=== PATIENT | male | born 1995 | race Caucasian/White ===

== ENCOUNTER 2019-10-19 03:41 | Observation (INO) | payer SELFPAY ==
[2019-10-19 04:59] LABS: ABSOLUTE BASOPHILS # (AUTO) 0.1 10^3/uL (0.0-0.2); ABSOLUTE EOSINOPHILS # (AUTO) 0.2 10^3/uL (0.0-0.6); ABSOLUTE LYMPHOCYTES (AUTO) 2.2 10^3/uL (0.5-4.7); ABSOLUTE MONOCYTES (AUTO) 0.9 10^3/uL (0.1-1.4); ABSOLUTE NEUT (AUTO) 10.7 10^3/uL (1.7-8.2); BASOPHILS % (AUTO) 0.5 % (0-2); EOSINOPHILS % (AUTO) 1.2 % (0-6); HEMATOCRIT 45.3 % (37.9-51.0); HEMOGLOBIN 15.5 g/dL (13.5-17.0); LYMPHOCYTES % (AUTO) 15.6 % (13-45); MEAN CORPUSCULAR HEMOGLOBIN 27.9 pg (27.0-33.4); MEAN CORPUSCULAR HGB CONC 34.3 g/dL (32.0-36.0); MEAN CORPUSCULAR VOLUME 81 fl (80-97); MONOCYTES % (AUTO) 6.8 % (3-13); PLATELET COUNT 253 10^3/uL (150-450); RED BLOOD COUNT 5.57 10^6/uL (4.35-5.55); RED CELL DISTRIBUTION WIDTH 13.2 % (11.5-14.0); SEGMENTED NEUTROPHILS % (AUTO) 75.9 % (42-78); TOTAL CELLS COUNTED % (AUTO) 100 %
[2019-10-19 05:02] LABS: APPEARANCE,URINE CLEAR; BILIRUBIN,URINE NEGATIVE (NEGATIVE); COLOR,URINE STRAW; GLUCOSE, URINE NEGATIVE (NEGATIVE); KETONES,URINE NEGATIVE (NEGATIVE); LEUKOCYTE ESTERASE,URINE NEGATIVE (NEGATIVE); NITRITE,URINE NEGATIVE (NEGATIVE); PROTEIN,URINE NEGATIVE (NEGATIVE); URINE SPECIFIC GRAVITY 1.008; UROBILINOGEN,URINE NEGATIVE mg/dL (<2.0)
[2019-10-19 05:05] LABS: ALBUMIN 4.8 g/dL (3.5-5.0); ALKALINE PHOSPHATASE 79 U/L (38-126); ANION GAP 12 (5-19); ASPARTATE AMINO TRANSFERASE 148 U/L (17-59); BILIRUBIN,DIRECT 0.5 mg/dL (0.0-0.4); BILIRUBIN,TOTAL 1.1 mg/dL (0.2-1.3); BLOOD UREA NITROGEN 15 mg/dL (7-20); CALCIUM 10.1 mg/dL (8.4-10.2); CARBON DIOXIDE 29 mmol/L (22-30); CHLORIDE 101 mmol/L (98-107); GLUCOSE 128 mg/dL (75-110); TOTAL PROTEIN 8.2 g/dL (6.3-8.2)
[2019-10-19] MEDS ORDERED: SUCCINYLCHOLINE CHLORIDE INJ 200 MG/10 ML VIAL ONE (08:43)
[2019-10-19] MEDS ORDERED: ONDANSETRON HCL INJ/PF 4 MG/2 ML SDV ONE (08:43)
[2019-10-19] MEDS ORDERED: DEXAMETHASONE SOD PHOSPHATE INJ 4 MG/1 ML VIAL ONE (08:43)
[2019-10-19] MEDS ORDERED: ROCURONIUM BROMIDE INJ 50 MG/5 ML VIAL IV ONE (08:43)
[2019-10-19] MEDS ORDERED: KETOROLAC TROMETHAMINE 60 MG/2 ML SDV ONE (08:43)
--- NOTE | 2019-10-19 10:01 | RADIOLOGY REPORT (SQ) ---
EXAM DESCRIPTION: U/S ABDOMEN LIMITED W/O DOP COMPLETED DATE/TIME: 10/19/2019 9:37 am REASON FOR STUDY: ruq abd pain COMPARISON: None. TECHNIQUE: Dynamic and static grayscale images acquired of the abdomen and recorded on PACS. Additio nal selected color Doppler and spectral images recorded. Note: Exam does not meet criteria for a complete doppler/duplex scan LIMITATIONS: Study limited due to acoustical interference from fat or from air in the bowel. FINDINGS: PANCREAS: Obscured. LIVER: Echotexture is coarse with increased echogenicity consistent with fatty infiltration. LIVER VASCULATURE: Normal directional flow of the main portal vein and hepatic veins. GALLBLADDER: Large 5 cm shadowing gallstone in the gallbladder neck. No pericholecystic fluid. No wa ll thickening. ULTRASOUND-DETECTED CARDOSO'S SIGN: Negative. INTRAHEPATIC DUCTS AND COMMON DUCT: CBD and intrahepatic ducts normal caliber. No filling defects. INFERIOR VENA CAVA: Normal flow. AORTA: No aneurysm. RIGHT KIDNEY: Normal size. Normal echogenicity. No solid or suspicious masses. No hydronephrosis. No calcifications. PERITONEAL AND PLEURAL SPACES: No ascites or effusions. OTHER: No other significant finding. IMPRESSION: 1. LARGE GALLSTONE. 2. FATTY INFILTRATION OF THE LIVER. NO OTHER SIGNIFICANT FINDING IN THE VISUALIZED ABDOMEN. TECHNICAL DOCUMENTATION: JOB ID: [id number] [employer]- All Rights Reserved Reading location - IP/workstation name: [email or web address]
[2019-10-19] MEDS ORDERED: ONDANSETRON HCL INJ/PF 4 MG/2 ML SDV IV PRN ×2 (10:36→16:55)
[2019-10-19] MEDS ORDERED: MORPHINE SULFATE 10 MG/ML INJ IV PRN ×2 (10:36→16:55)
--- NOTE | 2019-10-19 10:36 | PDOC H&P ---
History of Present Illness Patient complains of: Nausea, vomiting, right upper quadrant pain. History of Present Illness: DIAN MUHAMMAD is a 24 year old male with a 10-hour history of sharp, stabbing, unrelenting right upper quadrant pain. He reports last night at approximately 10 PM he ate mozzarella sticks. He woke up at approximately 1 AM with sharp, stabbing, unrelenting right upper quadrant pain. He has experienced nausea and vomiting. His pain is worsening. Nothing makes it better or worse. The patient denies chest pain, shortness of breath, fevers, chills, orthostasis, dizziness, headache, fatigue, melena, hematochezia, hematemesis. He does report malaise. Past Medical History Medical History: None Past Surgical History Past Surgical History: Reports: None Social History Smoking Status: Never Smoker Electronic Cigarette use?: No Hx Recreational Drug Use: No Hx Prescription Drug Abuse: No Family History Family History: Reviewed & Not Pertinent Parental Family History Reviewed: Yes Children Family History Reviewed: Yes Sibling(s) Family History Reviewed.: Yes Medication/Allergy Home Medications: Penicillin V Potassium [Penicillin Vk 250 mg Tablet] 250 mg PO Q6 #40 tablet 05/24/16 Tramadol HCl 50 mg PO ASDIR PRN #20 tablet 05/24/16 Allergies/Adverse Reactions: No Known Allergies Allergy (Verified 10/19/19 04:01) Review of Systems Constitutional: ABSENT: anorexia, chills, fatigue, fever(s), headache(s) Eyes: ABSENT: visual disturbances Ears: ABSENT: hearing changes Nose, Mouth, and Throat: ABSENT: mouth pain Breasts: ABSENT: other Cardiovascular: ABSENT: chest pain Respiratory: ABSENT: cough, dyspnea Gastrointestinal: PRESENT: abdominal pain, nausea, vomiting. ABSENT: bloating, constipation, diarrhea, dysphagia, heartburn, hematemesis, melena Genitourinary: ABSENT: dysuria Musculoskeletal: ABSENT: back pain Integumentary: ABSENT: pruritus, rash Neurological: ABSENT: confusion, convulsions, dizziness Psychiatric: ABSENT: anxiety, depression Endocrine: ABSENT: cold intolerance, heat intolerance Hematologic/Lymphatic: ABSENT: easy bleeding, easy bruising Physical Exam Vital Signs: Temp Pulse Resp BP Pulse Ox 98.7 F 86 19 138/83 H 96 10/19/19 04:02 10/19/19 04:02 10/19/19 04:02 10/19/19 04:02 10/19/19 04:02 Intake & Output 10/18/19 10/19/19 10/20/19 06:59 06:59 06:59 Weight 107.9 kg General appearance: PRESENT: no acute distress, cooperative, obese Head exam: PRESENT: atraumatic, normocephalic Eye exam: PRESENT: EOMI, PERRLA. ABSENT: scleral icterus Mouth exam: PRESENT: moist, neck supple Neck exam: ABSENT: meningismus, tenderness, thyromegaly, tracheal deviation Respiratory exam: PRESENT: clear to auscultation karen, unlabored. ABSENT: chest wall tenderness, tachypnea, wheezes Cardiovascular exam: ABSENT: tachycardia Pulses: PRESENT: normal radial pulses Vascular exam: ABSENT: pallor GI/Abdominal exam: PRESENT: guarding - RUQ, Hollins's sign, soft, tenderness - RUQ. ABSENT: distended, firm Rectal exam: PRESENT: deferred Extremities exam: ABSENT: clubbing Neurological exam: PRESENT: alert, awake, oriented to person, oriented to place, oriented to time, oriented to situation, CN II-XII grossly intact. ABSENT: motor sensory deficit Psychiatric exam: ABSENT: agitated, anxious, depressed Focused psych exam: ABSENT: delusional Skin exam: ABSENT: cyanosis, erythema, jaundice Results Laboratory Results: 10/19/19 04:43 10/19/19 04:43 10/19/19 10/19/19 10/19/19 04:43 04:43 04:43 WBC 14.0 H RBC 5.57 H Hgb 15.5 Hct 45.3 MCV 81 MCH 27.9 MCHC 34.3 RDW 13.2 Plt Count 253 Seg Neutrophils % 75.9 Sodium 142.4 Potassium 4.0 Chloride 101 Carbon Dioxide 29 Anion Gap 12 BUN 15 Creatinine 0.84 Est GFR ( Amer) > 60 Glucose 128 H Calcium 10.1 Total Bilirubin 1.1 AST 148 H Alkaline Phosphatase 79 Total Protein 8.2 Albumin 4.8 Lipase 152.9 Urine Color STRAW Urine Appearance CLEAR Urine pH 6.0 Ur Specific [place] 1.008 Urine Protein NEGATIVE Urine Glucose (UA) NEGATIVE Urine Ketones NEGATIVE Urine Blood NEGATIVE Urine Nitrite NEGATIVE Ur Leukocyte Esterase NEGATIVE Urine WBC (Auto) 0 Urine RBC (Auto) 0 Impressions: Abdomen Ultrasound 10/19/19 07:53 IMPRESSION: 1. LARGE GALLSTONE. 2. FATTY INFILTRATION OF THE LIVER. NO OTHER SIGNIFICANT FINDING IN THE VISUALIZED ABDOMEN. Assessment & Plan - Diagnosis (1) Acute cholecystitis Is this a current diagnosis for this admission?: Yes - Plan Summary Plan Summary: This is a 24-year-old male with right upper quadrant pain, gallstones, leukocytosis, consistent with acute cholecystitis. I have admitted the patient in the hospital, started intravenous antibiotics, and plan for surgical intervention today (laparoscopic versus open cholecystectomy). Continue n.p.o. status. Surgical intervention has been discussed with the patient and his family at length. Risks/benefits were discussed, informed consent was obtained, and all questions answered.
--- NOTE | 2019-10-19 10:43 | ER Document Report ---
ED General - General Chief Complaint: Abdominal Pain Stated Complaint: RIGHT UPPER ABDOMINAL PAIN Time Seen by Provider: 10/19/19 07:47 Mode of Arrival: Ambulatory Information source: Patient TRAVEL OUTSIDE OF THE [place] IN LAST 30 DAYS: No - HPI Notes: Patient presents with approximately 1 week worth of right upper quadrant pain. It is worse after eating fatty foods better when he does not. It does radiate across the upper part of the abdomen. It is severe and sharp. He is also had some nausea with one episode of vomiting this week. No problems with stools or urine. No fevers. This pain has been intermittent and moderate in intensity. - Related Data Allergies/Adverse Reactions: No Known Allergies Allergy (Verified 10/19/19 04:01) Home Medications: multivitamins. Ibuprofen Past Medical History - General Information source: Patient - Social History Smoking Status: Never Smoker Chew tobacco use (# tins/day): No Frequency of alcohol use: Rare Drug Abuse: None Family History: Reviewed & Not Pertinent Patient has suicidal ideation: No Patient has homicidal ideation: No Past Surgical History: Reports: None - Immunizations Immunizations up to date: Yes Hx Diphtheria, Pertussis, Tetanus Vaccination: Yes Review of Systems - Review of Systems Constitutional: denies: Chills, Fever Cardiovascular: denies: Chest pain, Palpitations Respiratory: denies: Cough, Short of breath -: Yes All other systems reviewed and negative Physical Exam - Vital signs Vitals: Temp Pulse Resp BP Pulse Ox 98.7 F 86 19 138/83 H 96 10/19/19 04:02 10/19/19 04:02 10/19/19 04:02 10/19/19 04:02 10/19/19 04:02 Interpretation: Normal - General General appearance: Appears well, Alert - HEENT Head: Normocephalic, Atraumatic Eyes: Normal Pupils: PERRL - Respiratory Respiratory status: No respiratory distress Chest status: Nontender Breath sounds: Normal Chest palpation: Normal - Cardiovascular Rhythm: Regular Heart sounds: Normal auscultation Murmur: No - Abdominal Inspection: Normal Distension: No distension Bowel sounds: Normal Tenderness: Tender, Hollins's sign, Guarding Organomegaly: No organomegaly - Back Back: Normal, Nontender - Extremities General upper extremity: Normal inspection, Nontender, Normal color, Normal ROM, Normal temperature General lower extremity: Normal inspection, Nontender, Normal color, Normal ROM, Normal temperature, Normal weight bearing. No: Jesse's sign - Neurological Neuro grossly intact: Yes Cognition: Normal Orientation: AAOx4 [place] Coma Scale Eye Opening: Spontaneous [place] Coma Scale Verbal: Oriented [place] Coma Scale Motor: Obeys Commands Ramon Coma Scale Total: 15 Speech: Normal Motor strength normal: LUE, RUE, LLE, RLE Sensory: Normal - Psychological Associated symptoms: Normal affect, Normal mood - Skin Skin Temperature: Warm Skin Moisture: Dry Skin Color: Normal Course - Re-evaluation Re-evalutation: 10/19/19 10:42 Patient presents with right upper quadrant pain this worse with fatty foods. He does have a gallstone stuck in the gallbladder neck. He does have an elevated WBC count. Dr. Trejo is seen the patient and will admit the patient for possible cholecystectomy. - Vital Signs Vital signs: Temp Pulse Resp BP Pulse Ox 98.7 F 86 19 138/83 H 96 10/19/19 04:02 10/19/19 04:02 10/19/19 04:02 10/19/19 04:02 10/19/19 04:02 - Laboratory Result Diagrams: 10/19/19 04:43 10/19/19 04:43 Laboratory results interpreted by me: 10/19/19 10/19/19 04:43 04:43 WBC 14.0 H RBC 5.57 H Absolute Neuts (auto) 10.7 H Glucose 128 H Direct Bilirubin 0.5 H AST 148 H ALT 95 H - Diagnostic Test Radiology reviewed: Image reviewed, Reports reviewed Discharge - Discharge Clinical Impression: Cholecystitis Condition: Stable Disposition: ADMITTED INPATIENT Admitting Provider: Rebecca trejo Unit Admitted: Surgical Floor
[2019-10-19] MEDS ORDERED: ONDANSETRON HCL INJ/PF 4 MG/2 ML SDV IV ONE (10:44)
[2019-10-19] MEDS ORDERED: MORPHINE SULFATE 10 MG/ML INJ IV ONE (10:44)
[2019-10-19] MEDS: FAMOTIDINE INJ/PF 20 MG/2 ML SDV IV SCH ×2 (11:01→21:14)
[2019-10-19] MEDS: NORMAL SALINE 1000 ML 1,000 ML IV PRN ×2 (11:06→20:13)
[2019-10-19] MEDS: PIPERACILLIN SODIUM/TAZOBACTAM 3.375 GM in NORMAL SALINE 100 ML IV SCH ×2 (11:40→21:15)
[2019-10-19] MEDS ORDERED: INFLUENZA QUAD (6MOS+) 2019-20 VAC 0.5 ML SYR IM ONE (14:51)
[2019-10-19] MEDS ORDERED: BUPIVACAINE HCL 0.5 % INJ/PF 30 ML SDV ONE (16:05)
[2019-10-19] MEDS ORDERED: GLUCAGON,HUMAN RECOMB 1 MG INJ ONE (16:06)
[2019-10-19] MEDS ORDERED: MIDAZOLAM 2 MG/2 ML INJ ONE (16:08)
[2019-10-19] MEDS ORDERED: FENTANYL CITRATE INJ/PF 100 MCG/2 ML AMPUL ONE ×2 (16:08→19:10)
[2019-10-19] MEDS ORDERED: PROPOFOL INJ 200 MG/20 ML VIAL IV ONE (16:09)
[2019-10-19] MEDS ORDERED: DIPHENHYDRAMINE HCL 50 MG/ML VIAL IV PRN (16:55)
[2019-10-19] MEDS ORDERED: PROMETHAZINE HCL INJ 25 MG/1 ML VIAL IV PRN (16:55)
[2019-10-19] MEDS ORDERED: FENTANYL CITRATE INJ/PF 100 MCG/2 ML AMPUL IV PRN ×3 (16:55)
[2019-10-19] MEDS ORDERED: MEPERIDINE HCL/PF INJ 25 MG/1 ML DISP.SYRIN IV PRN (16:55)
[2019-10-19] MEDS: HYDROCODONE/ACETAMINOPHEN 10-325 MG TABLET PO PRN (20:13)
[2019-10-20] MEDS: HYDROCODONE/ACETAMINOPHEN 10-325 MG TABLET PO PRN ×3 (00:31→09:41)
[2019-10-20] MEDS: NORMAL SALINE 1000 ML 1,000 ML IV PRN (02:32)
[2019-10-20] MEDS: PIPERACILLIN SODIUM/TAZOBACTAM 3.375 GM in NORMAL SALINE 100 ML IV SCH ×2 (02:32→09:18)
--- NOTE | 2019-10-20 06:37 | Operative Report ---
Nonrecallable Operative Report DATE OF SURGERY: 10/19/19 PREOPERATIVE DIAGNOSIS: Acute cholecystitis POSTOPERATIVE DIAGNOSIS: 1. Same as above. 2. Gallbladder hydrops OPERATION: Laparoscopic cholecystectomy SURGEON: MOLLY ZIMMERMAN ANESTHESIA: GA TISSUE REMOVED OR ALTERED: Gallbladder COMPLICATIONS: None apparent ESTIMATED BLOOD LOSS: 50 cc PROCEDURE: Drains/implants: 15 Urdu round [place] drain in the gallbladder fossa. Procedure in detail: After informed consent was obtained, the patient was brought into the operating room and laid in the supine position. The area of the abdomen was prepped and draped in a normal sterile fashion. An incision was created in the supraumbilical position. Dissection was carried through the subcutaneous tissues using sharp and blunt dissection. The cicatrix was identified, grasped with a Magdiel clamp, and retracted upwards. The linea alba fascia was incised sharply, the abdomen was entered sharply. The balloon trocar was inserted, pneumoperitoneum was achieved. A subxiphoid 5 mm port was then placed under direct laparoscopic visualization. 2 more 5 mm ports were placed in the right upper quadrant in similar fashion. Atraumatic graspers were placed through the 5 mm ports. The gallbladder was retracted cephalad and laterally. The gallbladder was very tense and distended. It was very difficult to manipulate. Secondary to this, a cyst aspiration needle was used to aspirate approximately 100 cc of hydropic bile from the gallbladder. The gallbladder then became much easier to manipulate. Dissection was begun in the triangle of [place]. There was acute cholecystitis present, and dissection was somewhat difficult. With great care the dissection proceeded. Eventually, the cystic duct and cystic artery were fully visualized and skeletonized, seeing the liver through the triangle. Once the critical view of safety was obtained the cystic duct and cystic artery were clipped and cut with laparoscopic instruments. The gallbladder was then removed from the liver using Bovie electrocautery. The gallbladder was placed into an Endo Catch bag, and pulled out through the umbilicus. The camera was reinserted. The hilum was then inspected. It was found to be free of any leakage of blood or bile. The abdomen was then copiously irrigated and suctioned until the effluent was clear. Once this was completed, the 5 mm trochars were removed under direct laparoscopic visualization. The supraumbilical trocar was then removed, and pneumoperitoneum was relieved. The supraumbilical fascia was closed using 0 Vicryl suture in [id number] fashion. The overlying skin was closed using 4-0 Vicryl Rapide suture in subcuticular fashion. All sponge, instrument, and needle counts were correct x2. Condition: Stable.
[2019-10-20 07:09] LABS: ABSOLUTE MONOCYTES (AUTO) 0.7 10^3/uL (0.1-1.4); ABSOLUTE NEUT (AUTO) 12.5 10^3/uL (1.7-8.2); BASOPHILS % (AUTO) 0.1 % (0-2); HEMATOCRIT 43.2 % (37.9-51.0); HEMOGLOBIN 14.6 g/dL (13.5-17.0); MEAN CORPUSCULAR HGB CONC 33.6 g/dL (32.0-36.0); MEAN CORPUSCULAR VOLUME 83 fl (80-97); MONOCYTES % (AUTO) 4.9 % (3-13); PLATELET COUNT 223 10^3/uL (150-450); RED BLOOD COUNT 5.21 10^6/uL (4.35-5.55); RED CELL DISTRIBUTION WIDTH 13.4 % (11.5-14.0); TOTAL CELLS COUNTED % (AUTO) 100 %; WHITE BLOOD COUNT 14.2 10^3/uL (4.0-10.5)
[2019-10-20 07:27] LABS: ALBUMIN 4.1 g/dL (3.5-5.0); ALKALINE PHOSPHATASE 108 U/L (38-126); ANION GAP 14 (5-19); ASPARTATE AMINO TRANSFERASE 285 U/L (17-59); BILIRUBIN,TOTAL 1.9 mg/dL (0.2-1.3); BLOOD UREA NITROGEN 12 mg/dL (7-20); CALCIUM 9.3 mg/dL (8.4-10.2); CARBON DIOXIDE 24 mmol/L (22-30); CHLORIDE 102 mmol/L (98-107); GLUCOSE 165 mg/dL (75-110); POTASSIUM 4.1 mmol/L (3.6-5.0); TOTAL PROTEIN 7.2 g/dL (6.3-8.2)
[2019-10-20] MEDS: FAMOTIDINE INJ/PF 20 MG/2 ML SDV IV SCH (09:18)
[2019-10-20 11:11] VITALS: BP 127/73
--- NOTE | 2019-10-20 15:23 | PDOC DISCHARGE SUMMARY ---
General - Admit/Disc Date/PCP Admission Date/Primary Care Provider: 10/19/19 10:52 Discharge Date: 10/20/19 - Discharge Diagnosis Final Diagnosis: Acute cholecystitis - Assessment Summary: Admitted for acute cholecystitis and underwent laparoscopic cholecystectomy on 10/19/2019. Postoperatively patient did very well. However the SARA drain 125 cc and therefore patient patient will be discharged with the drain which will be removed in the office by Dr. Amaya in about a week. His liver enzymes slightly elevated but the alkaline [place] remain normal postoperatively. He remained afebrile the white count is slightly elevated but this is decreased from preop. - Additional Information Resuscitation Status: Full Code Discharge Diet: Regular Discharge Activity: Activity As Tolerated Referrals: [facility] [Provider Group] - 11/01/19 10:45 am Home Medications: Ibuprofen 200 mg PO DAILYP PRN 10/19/19 Multivitamin [Tab-A-Serg (Multiple Vitamin) Tablet] 1 tab PO DAILY 10/19/19 History of Present Illiness History of Present Illness: DIAN MUHAMMAD is a 24 year old male in of right upper quadrant pains. Ultrasound showed gallstones with acute cholecystitis. Physical Exam Vital Signs: Temp Pulse Resp BP Pulse Ox 97.6 F 85 16 127/73 H 100 10/20/19 11:10 10/20/19 11:10 10/20/19 11:10 10/20/19 11:10 10/20/19 11:10 Intake & Output 10/19/19 10/20/19 10/21/19 06:59 06:59 06:59 Intake Total 4473 Output Total 136 Balance 4337 Weight 107.9 kg 74.9 kg Results Laboratory Results: WBC 14.2 10^3/uL (4.0-10.5) H 10/20/19 06:04 RBC 5.21 10^6/uL (4.35-5.55) 10/20/19 06:04 Hgb 14.6 g/dL (13.5-17.0) 10/20/19 06:04 Hct 43.2 % (37.9-51.0) 10/20/19 06:04 MCV 83 fl (80-97) 10/20/19 06:04 MCH 28.0 pg (27.0-33.4) 10/20/19 06:04 MCHC 33.6 g/dL (32.0-36.0) 10/20/19 06:04 RDW 13.4 % (11.5-14.0) 10/20/19 06:04 Plt Count 223 10^3/uL (150-450) 10/20/19 06:04 Lymph % (Auto) 7.0 % (13-45) L 10/20/19 06:04 [place] % (Auto) 4.9 % (3-13) 10/20/19 06:04 Eos % (Auto) 0.0 % (0-6) 10/20/19 06:04 Baso % (Auto) 0.1 % (0-2) 10/20/19 06:04 Absolute Neuts (auto) 12.5 10^3/uL (1.7-8.2) H 10/20/19 06:04 Absolute Lymphs (auto) 1.0 10^3/uL (0.5-4.7) 10/20/19 06:04 Absolute Monos (auto) 0.7 10^3/uL (0.1-1.4) 10/20/19 06:04 Absolute Eos (auto) 0.0 10^3/uL (0.0-0.6) 10/20/19 06:04 Absolute Basos (auto) 0.0 10^3/uL (0.0-0.2) 10/20/19 06:04 Seg Neutrophils % 88.0 % (42-78) H 10/20/19 06:04 Sodium 139.9 mmol/L (137-145) 10/20/19 06:04 Potassium 4.1 mmol/L (3.6-5.0) 10/20/19 06:04 Chloride 102 mmol/L (98-107) 10/20/19 06:04 Carbon Dioxide 24 mmol/L (22-30) 10/20/19 06:04 Anion Gap 14 (5-19) 10/20/19 06:04 BUN 12 mg/dL (7-20) 10/20/19 06:04 Creatinine 0.83 mg/dL (0.52-1.25) 10/20/19 06:04 Est GFR ( Amer) > 60 (>60) 10/20/19 06:04 Est GFR (MDRD) Non-Af > 60 (>60) 10/20/19 06:04 Glucose 165 mg/dL (75-110) H 10/20/19 06:04 Calcium 9.3 mg/dL (8.4-10.2) 10/20/19 06:04 Total Bilirubin 1.9 mg/dL (0.2-1.3) H 10/20/19 06:04 Direct Bilirubin 1.0 mg/dL (0.0-0.4) H 10/20/19 06:04 Neonat Total Bilirubin Not Reportable 10/20/19 06:04 Neonat Direct Bilirubin Not Reportable 10/20/19 06:04 Neonat Indirect Bili Not Reportable 10/20/19 06:04 AST 285 U/L (17-59) H 10/20/19 06:04 ALT 462 U/L (<50) H 10/20/19 06:04 Alkaline Phosphatase 108 U/L (38-126) 10/20/19 06:04 Total Protein 7.2 g/dL (6.3-8.2) 10/20/19 06:04 Albumin 4.1 g/dL (3.5-5.0) 10/20/19 06:04 Lipase 152.9 U/L (23-300) 10/19/19 04:43 Urine Color STRAW 10/19/19 04:43 Urine Appearance CLEAR 10/19/19 04:43 Urine pH 6.0 (5.0-9.0) 10/19/19 04:43 Ur Specific [place] 1.008 10/19/19 04:43 Urine Protein NEGATIVE mg/dL (NEGATIVE) 10/19/19 04:43 Urine Glucose (UA) NEGATIVE mg/dL (NEGATIVE) 10/19/19 04:43 Urine Ketones NEGATIVE mg/dL (NEGATIVE) 10/19/19 04:43 Urine Blood NEGATIVE (NEGATIVE) 10/19/19 04:43 Urine Nitrite NEGATIVE (NEGATIVE) 10/19/19 04:43 Urine Bilirubin NEGATIVE (NEGATIVE) 10/19/19 04:43 Urine Urobilinogen NEGATIVE mg/dL (<2.0) 10/19/19 04:43 Ur Leukocyte Esterase NEGATIVE (NEGATIVE) 10/19/19 04:43 Urine WBC (Auto) 0 /HPF 10/19/19 04:43 Urine RBC (Auto) 0 /HPF 10/19/19 04:43 Urine Mucus (Auto) RARE /LPF 10/19/19 04:43 Urine Ascorbic Acid NEGATIVE (NEGATIVE) 10/19/19 04:43 Impressions: Abdomen Ultrasound 10/19/19 07:53 IMPRESSION: 1. LARGE GALLSTONE. 2. FATTY INFILTRATION OF THE LIVER. NO OTHER SIGNIFICANT FINDING IN THE VISUALIZED ABDOMEN.
== END 2019-10-20 11:40 | disposition home or self-care (01) ==
LOC: ER 03:41 → INTOOBSV 10:52 → EH 10:52 → 4S 12:18
PROVIDERS: ATTEND Surgery
DX: K80.12 Calculus of gallbladder with acute and chronic cholecystitis without obstruction (principal); E66.9 Obesity, unspecified; Z23 Encounter for immunization
CPT/HCPCS: 99285; 36415 ×2; 83690; 85025 ×2; 80053 ×2; 81001; 88304 ×2; 76705; 90686; 00790; 47562; G0378 ×3; J2250; J3490 ×2; J1100; J1885; J3010; J2270 ×2; J0330; J2405; J7050 ×2; J7030 ×2; J2704; S0028; J2543 ×2; 790; J1610

== ENCOUNTER 2019-10-27 17:51 | Observation (INO) | payer SELFPAY ==
[2019-10-27] MEDS: RINGERS SOLUTION,LACTATED 1,000 ML IV PRN (19:00)
[2019-10-27] MEDS: PIPERACILLIN SODIUM/TAZOBACTAM 3.375 GM in NORMAL SALINE 100 ML IV SCH (21:06)
--- NOTE | 2019-10-27 21:26 | PDOC H&P ---
History of Present Illness Admission Date/PCP: 10/27/19 17:51 Patient complains of: Jaundice History of Present Illness: DIAN MUHAMMAD is a 24 year old male The patient is admitted directly to the hospital after being seen at [facility] earlier today by Dr. Isabella Conn 1 week after undergoing laparoscopic cholecystectomy with drain placement by Dr. Andrei Amaya at [facility] on October 19. Patient at that time was found to have acute cholecystitis, hemorrhagic component, with biliary hydrops, and cholelithiasis. Discharged home the following day, total bilirubin 1.9. Since discharge the patient has had some incisional pain and drain site pain but no abdominal pain. His urine is been dark, and occasionally has had ervin colored stools. His diet is been depressed but not significantly. He denies fever. When seen today in the office he was felt to be jaundiced and had blood work done which revealed a total bilirubin of 2.4, and an elevated alkaline phosphatase. He was brought back to the hospital for further evaluation. Past Medical History Past Medical History: As per HPI Past Surgical History Past Surgical History: Reports: Cholecystectomy Social History Information Source: Patient Smoking Status: Never Smoker Electronic Cigarette use?: No Frequency of Alcohol Use: None Hx Recreational Drug Use: No Drugs: None Hx Prescription Drug Abuse: No Family History Family History: None, Reviewed & Not Pertinent Parental Family History Reviewed: No Children Family History Reviewed: No Sibling(s) Family History Reviewed.: No Medication/Allergy Home Medications: Multivitamin [Tab-A-Serg (Multiple Vitamin) Tablet] 1 tab PO DAILY 10/19/19 Allergies/Adverse Reactions: No Known Allergies Allergy (Verified 10/19/19 04:01) Review of Systems Constitutional: PRESENT: as per HPI Eyes: PRESENT: as per HPI. ABSENT: visual disturbances Ears: ABSENT: hearing changes Cardiovascular: ABSENT: chest pain, dyspnea on exertion, edema, orthropnea, palpitations Gastrointestinal: PRESENT: other - As per HPI; patient denies constipation. Genitourinary: ABSENT: dysuria, hematuria Musculoskeletal: ABSENT: joint swelling Integumentary: ABSENT: rash, wounds Neurological: ABSENT: abnormal gait, abnormal speech, confusion, dizziness, focal weakness, syncope Physical Exam Vital Signs: Temp Pulse Resp BP Pulse Ox 98.4 F 105 H 18 118/83 99 10/27/19 19:34 10/27/19 19:34 10/27/19 19:34 10/27/19 19:34 10/27/19 19:34 Intake & Output 10/26/19 10/27/19 10/28/19 06:59 06:59 06:59 Weight 102.6 kg General appearance: PRESENT: no acute distress Head exam: PRESENT: normocephalic Eye exam: PRESENT: EOMI, scleral icterus Mouth exam: PRESENT: dry mucosa Neck exam: PRESENT: full ROM, other - Significant neves Respiratory exam: PRESENT: clear to auscultation karen Cardiovascular exam: PRESENT: RRR Pulses: PRESENT: normal carotid pulses, normal radial pulses, normal femoral pulses, normal dorsalis pedis pul GI/Abdominal exam: PRESENT: other - Operative incisions covered Steri-Strips were removed. Drain exit site with some bile staining. Fluid in the drain bulb is serous, with tinge of bile. The abdomen is soft nontender no peritoneal signs no rigidity Rectal exam: PRESENT: deferred Extremities exam: PRESENT: full ROM Musculoskeletal exam: PRESENT: full ROM Neurological exam: PRESENT: oriented to person, oriented to place, oriented to time, oriented to situation Psychiatric exam: PRESENT: appropriate affect Assessment & Plan - Diagnosis (1) Elevated LFTs Is this a current diagnosis for this admission?: Yes Plan: Impression: Mild jaundice, residual bile around a drain status post laparoscopic cholecystectomy 1 week ago for acute cholecystitis and cholelithiasis. Clinical picture concerning for low-grade bile leak. No evidence of sepsis Recommendations: 1. Admit, n.p.o., IV fluids, empiric antibiotic therapy; no indication for surgical intervention tonight 2. Obtain HIDA scan to rule out biliary tract leak; Pending findings, patient may require additional drain placement versus ERCP, stent placement 3. I reassured the patient that he is not critically ill, and certainly has no evidence of cancer. (2) Status post laparoscopic cholecystectomy Is this a current diagnosis for this admission?: Yes - Time Time Spent: 30 to 50 Minutes Critical Time spent with patient: Less than 15 minutes Medications reviewed and adjusted accordingly: Yes Anticipated discharge: Home - Inpatient Certification Based on my medical assessment, after consideration of the patient's comorbidities, presenting symptoms, or acuity I expect that the services needed warrant INPATIENT care.: Yes I certify that my determination is in accordance with my understanding of Medicare's requirements for reasonable and necessary INPATIENT services [42 CFR 412.3e].: Yes Medical Necessity: Need For IV Fluids, Need for IV Antibiotics
[2019-10-28] MEDS: PIPERACILLIN SODIUM/TAZOBACTAM 3.375 GM in NORMAL SALINE 100 ML IV SCH ×2 (03:09→08:11)
[2019-10-28] MEDS: RINGERS SOLUTION,LACTATED 1,000 ML IV PRN ×2 (03:09→14:22)
[2019-10-28 05:51] LABS: ABSOLUTE EOSINOPHILS # (AUTO) 0.2 10^3/uL (0.0-0.6); ABSOLUTE LYMPHOCYTES (AUTO) 2.3 10^3/uL (0.5-4.7); ABSOLUTE MONOCYTES (AUTO) 0.7 10^3/uL (0.1-1.4); ABSOLUTE NEUT (AUTO) 4.1 10^3/uL (1.7-8.2); BASOPHILS % (AUTO) 0.5 % (0-2); EOSINOPHILS % (AUTO) 2.9 % (0-6); HEMATOCRIT 39.8 % (37.9-51.0); HEMOGLOBIN 14.1 g/dL (13.5-17.0); LYMPHOCYTES % (AUTO) 31.3 % (13-45); MEAN CORPUSCULAR HEMOGLOBIN 29.2 pg (27.0-33.4); MEAN CORPUSCULAR HGB CONC 35.3 g/dL (32.0-36.0); MEAN CORPUSCULAR VOLUME 83 fl (80-97); PLATELET COUNT 208 10^3/uL (150-450); RED BLOOD COUNT 4.82 10^6/uL (4.35-5.55); RED CELL DISTRIBUTION WIDTH 13.5 % (11.5-14.0); SEGMENTED NEUTROPHILS % (AUTO) 56.3 % (42-78); TOTAL CELLS COUNTED % (AUTO) 100 %; WHITE BLOOD COUNT 7.3 10^3/uL (4.0-10.5)
[2019-10-28 06:09] LABS: ALBUMIN 3.7 g/dL (3.5-5.0); ALKALINE PHOSPHATASE 169 U/L (38-126); ANION GAP 10 (5-19); ASPARTATE AMINO TRANSFERASE 112 U/L (17-59); BILIRUBIN,DIRECT 0.9 mg/dL (0.0-0.4); BILIRUBIN,TOTAL 1.8 mg/dL (0.2-1.3); BLOOD UREA NITROGEN 13 mg/dL (7-20); CALCIUM 9.4 mg/dL (8.4-10.2); CARBON DIOXIDE 29 mmol/L (22-30); CHLORIDE 103 mmol/L (98-107); GLUCOSE 95 mg/dL (75-110); POTASSIUM 4.2 mmol/L (3.6-5.0); TOTAL PROTEIN 6.8 g/dL (6.3-8.2)
--- NOTE | 2019-10-28 10:55 | RADIOLOGY REPORT (SQ) ---
EXAM DESCRIPTION: NM HIDA SCAN COMPLETED DATE/TIME: 10/28/2019 10:00 am REASON FOR STUDY: s/p choleystectomy COMPARISON: 10/19/19 RADIONUCLIDE AND DOSE: DOSAGE RADIONUCLIDE: 5.11 millicuries Tc99m Mebrofenin. DOSAGE MORPHINE: Not required. The route of agent administration: Intravenous TECHNIQUE: Serial imaging right upper quadrant up to 60 minutes following injection of radionuclide. Patient imaged AP and Right Lateral. LIMITATIONS: None. FINDINGS: LIVER: Normal visualization without areas of photopenia. INTRA-HEPATIC BILE DUCTS: Temporal visualization normal. No dilatation. COMMON BILE DUCT: Normal without dilatation or delayed visualization. GALLBLADDER: Surgically absent. OTHER: Radiotracer reflux within the gastric lumen. IMPRESSION: 1. No evidence of CBD obstruction. 2. Status post cholecystectomy. No evidence of biliary ductal leak. TECHNICAL DOCUMENTATION: JOB ID: [id number] 2010 [employer]- All Rights Reserved Reading location - IP/workstation name: [email or web address]
--- NOTE | 2019-10-28 16:21 | PDOC DISCHARGE SUMMARY ---
General - Admit/Disc Date/PCP Admission Date/Primary Care Provider: 10/27/19 17:51 Discharge Date: 10/28/19 - Discharge Diagnosis Final Diagnosis: Hyperbilirubinemia after laparoscopic cholecystectomy. No evidence of bile duct obstruction or bile leak on imaging. - Assessment Summary: This is a 24-year-old male who is recently status post laparoscopic cholecystectomy for acute cholecystitis. The patient has an indwelling right upper quadrant drain. The patient presented to the office yesterday with complaints of jaundice. His bilirubin was 2.4, and the patient was admitted to the hospital for work-up. The patient underwent a HIDA scan, which failed to show evidence of bile leak or bile duct obstruction. Repeat liver function tests are improved. The patient today feels well. He is eating without difficulty. He denies fevers, chills, chest pain, or shortness of breath. I will leave his right upper quadrant drain in place. At this time, the patient is requesting discharge home. I will see him in my office next week, and repeat his liver function tests. I believe it is safe for the patient to be discharged home at this time. - Additional Information Resuscitation Status: Full Code Discharge Diet: As Tolerated Discharge Activity: No Lifting Over 10 Pounds, No Lifting/Push/Pulling Referrals: [facility] [Provider Group] - 11/01/19 10:45 am Home Medications: Multivitamin [Tab-A-Serg (Multiple Vitamin) Tablet] 1 tab PO DAILY 10/19/19 Additional Information: Discharge home. Diet as tolerated. Activity: No lifting greater than 10 pounds for approximately 1 more week. Tylenol and Advil for pain. Record SARA drain output strictly. Follow-up with me next week. History of Present Illiness History of Present Illness: DIAN MUHAMMAD is a 24 year old male Physical Exam Vital Signs: Temp Pulse Resp BP Pulse Ox 98.5 F 69 16 124/64 99 10/28/19 11:26 10/28/19 11:26 10/28/19 11:26 10/28/19 11:26 10/28/19 11:26 Intake & Output 10/27/19 10/28/19 10/29/19 06:59 06:59 06:59 Intake Total 1200 1340 Output Total 30 Balance 1170 1340 Weight 103.3 kg Results Laboratory Results: WBC 7.3 10^3/uL (4.0-10.5) 10/28/19 04:23 RBC 4.82 10^6/uL (4.35-5.55) 10/28/19 04:23 Hgb 14.1 g/dL (13.5-17.0) 10/28/19 04:23 Hct 39.8 % (37.9-51.0) 10/28/19 04:23 MCV 83 fl (80-97) 10/28/19 04:23 MCH 29.2 pg (27.0-33.4) 10/28/19 04:23 MCHC 35.3 g/dL (32.0-36.0) 10/28/19 04:23 RDW 13.5 % (11.5-14.0) 10/28/19 04:23 Plt Count 208 10^3/uL (150-450) 10/28/19 04:23 Lymph % (Auto) 31.3 % (13-45) 10/28/19 04:23 Wallace % (Auto) 9.0 % (3-13) 10/28/19 04:23 Eos % (Auto) 2.9 % (0-6) 10/28/19 04:23 Baso % (Auto) 0.5 % (0-2) 10/28/19 04:23 Absolute Neuts (auto) 4.1 10^3/uL (1.7-8.2) 10/28/19 04:23 Absolute Lymphs (auto) 2.3 10^3/uL (0.5-4.7) 10/28/19 04:23 Absolute Monos (auto) 0.7 10^3/uL (0.1-1.4) 10/28/19 04:23 Absolute Eos (auto) 0.2 10^3/uL (0.0-0.6) 10/28/19 04:23 Absolute Basos (auto) 0.0 10^3/uL (0.0-0.2) 10/28/19 04:23 Seg Neutrophils % 56.3 % (42-78) 10/28/19 04:23 Sodium 142.0 mmol/L (137-145) 10/28/19 04:23 Potassium 4.2 mmol/L (3.6-5.0) 10/28/19 04:23 Chloride 103 mmol/L (98-107) 10/28/19 04:23 Carbon Dioxide 29 mmol/L (22-30) 10/28/19 04:23 Anion Gap 10 (5-19) 10/28/19 04:23 BUN 13 mg/dL (7-20) 10/28/19 04:23 Creatinine 0.89 mg/dL (0.52-1.25) 10/28/19 04:23 Est GFR ( Amer) > 60 (>60) 10/28/19 04:23 Est GFR (MDRD) Non-Af > 60 (>60) 10/28/19 04:23 Glucose 95 mg/dL (75-110) 10/28/19 04:23 Calcium 9.4 mg/dL (8.4-10.2) 10/28/19 04:23 Total Bilirubin 1.8 mg/dL (0.2-1.3) H 10/28/19 04:23 Direct Bilirubin 0.9 mg/dL (0.0-0.4) H 10/28/19 04:23 Neonat Total Bilirubin Not Reportable 10/28/19 04:23 Neonat Direct Bilirubin Not Reportable 10/28/19 04:23 Neonat Indirect Bili Not Reportable 10/28/19 04:23 AST 112 U/L (17-59) H 10/28/19 04:23 ALT 411 U/L (<50) H 10/28/19 04:23 Alkaline Phosphatase 169 U/L (38-126) H 10/28/19 04:23 Total Protein 6.8 g/dL (6.3-8.2) 10/28/19 04:23 Albumin 3.7 g/dL (3.5-5.0) 10/28/19 04:23 Impressions: Hepatobiliary Scan Nuclear Medicine 10/27/19 00:00 IMPRESSION: 1. No evidence of CBD obstruction. 2. Status post cholecystectomy. No evidence of biliary ductal leak.
[2019-10-28 17:01] VITALS: BP 116/64
== END 2019-10-28 17:06 | disposition home or self-care (01) ==
LOC: 4S 17:51
PROVIDERS: ADMIT Surgery; ATTEND Surgery
DX: E80.6 Other disorders of bilirubin metabolism (principal); K91.89 Other postprocedural complications and disorders of digestive system; Y83.6 Removal of other organ (partial) (total) as the cause of abnormal reaction of the patient, or of later complication, without mention of misadventure at the time of the procedure; G89.18 Other acute postprocedural pain
CPT/HCPCS: 36415; 85025; 80053; 78226; G0378 ×3; A9537; J7050 ×2; J7120 ×2; J2543 ×2; Q9969

== ENCOUNTER → 2019-10-27 | Outpatient (CLI) | payer SELFPAY ==
[2019-10-27 11:14] LABS: ABSOLUTE BASOPHILS # (AUTO) 0.1 10^3/uL (0.0-0.2); ABSOLUTE EOSINOPHILS # (AUTO) 0.2 10^3/uL (0.0-0.6); ABSOLUTE LYMPHOCYTES (AUTO) 1.7 10^3/uL (0.5-4.7); ABSOLUTE MONOCYTES (AUTO) 0.7 10^3/uL (0.1-1.4); ABSOLUTE NEUT (AUTO) 6.9 10^3/uL (1.7-8.2); BASOPHILS % (AUTO) 0.7 % (0-2); EOSINOPHILS % (AUTO) 1.9 % (0-6); HEMATOCRIT 45.5 % (37.9-51.0); HEMOGLOBIN 15.9 g/dL (13.5-17.0); LYMPHOCYTES % (AUTO) 17.5 % (13-45); MEAN CORPUSCULAR HEMOGLOBIN 28.8 pg (27.0-33.4); MEAN CORPUSCULAR HGB CONC 35.1 g/dL (32.0-36.0); MEAN CORPUSCULAR VOLUME 82 fl (80-97); MONOCYTES % (AUTO) 7.4 % (3-13); PLATELET COUNT 247 10^3/uL (150-450); RED BLOOD COUNT 5.53 10^6/uL (4.35-5.55); RED CELL DISTRIBUTION WIDTH 13.6 % (11.5-14.0); SEGMENTED NEUTROPHILS % (AUTO) 72.5 % (42-78); TOTAL CELLS COUNTED % (AUTO) 100 %; WHITE BLOOD COUNT 9.6 10^3/uL (4.0-10.5)
[2019-10-27 11:30] LABS: ALBUMIN 4.8 g/dL (3.5-5.0); ALKALINE PHOSPHATASE 237 U/L (38-126); ANION GAP 13 (5-19); ASPARTATE AMINO TRANSFERASE 198 U/L (17-59); BILIRUBIN,DIRECT 1.3 mg/dL (0.0-0.4); BILIRUBIN,TOTAL 2.4 mg/dL (0.2-1.3); BLOOD UREA NITROGEN 12 mg/dL (7-20); CALCIUM 10.1 mg/dL (8.4-10.2); CARBON DIOXIDE 29 mmol/L (22-30); CHLORIDE 99 mmol/L (98-107); GLUCOSE 108 mg/dL (75-110); POTASSIUM 4.3 mmol/L (3.6-5.0); TOTAL PROTEIN 8.3 g/dL (6.3-8.2)
== END ==
LOC: OD 10:17
PROVIDERS: ATTEND Surgery
DX: R17 Unspecified jaundice (principal); Z90.49 Acquired absence of other specified parts of digestive tract
CPT/HCPCS: 36415; 80053; 85025

== ENCOUNTER → 2019-11-01 | Outpatient (CLI) | payer SELFPAY ==
[2019-11-01 12:26] LABS: ALBUMIN 4.7 g/dL (3.5-5.0); ALKALINE PHOSPHATASE 125 U/L (38-126); ASPARTATE AMINO TRANSFERASE 51 U/L (17-59); BILIRUBIN,DIRECT 0.6 mg/dL (0.0-0.4); BILIRUBIN,TOTAL 0.9 mg/dL (0.2-1.3)
== END ==
LOC: LAB 11:42
PROVIDERS: ATTEND Surgery
DX: E80.6 Other disorders of bilirubin metabolism (principal); R94.5 Abnormal results of liver function studies; Z90.49 Acquired absence of other specified parts of digestive tract
CPT/HCPCS: 36415; 80076